=== PATIENT | female | born 1975 | race Caucasian/White ===

== ENCOUNTER 2016-06-04 13:40 | Emergency (ER) | payer MEDICAID ==
[~2016-06-04] VITALS: Ht 157.5 cm; Wt 59.0 kg
[2016-06-04 13:58] VITALS: Ht 157.5 cm; Wt 59.0 kg
[2016-06-04] MEDS ORDERED: IBUP-1542 PO (14:46)
[2016-06-04] MEDS ORDERED: ACET500C5 PO (14:46)
[2016-06-04] MEDS ORDERED: UDROBDM PO (14:47)
[2016-06-04] MEDS ORDERED: CETI10CA PO (14:47)
[2016-06-04] MEDS ORDERED: AZIT250T94 PO (14:47)
--- NOTE | 2016-06-04 16:21 | ERD ---
ER Documentation Chief Complaint Date/Time DATE: 06/04/16 TIME: 16:17 Chief Complaint cold symptoms, cough and fever at home HPI This is a 41-year-old female who presents emergency Department today complaining of cough and congestion and intermittent fevers for the past 5 days. She took Motrin last night. Denies any nausea or vomiting, headache, body aches. ROS All systems reviewed and are negative except as per history of present illness. Medications Home Meds Active Scripts Cetirizine Hcl* (Zyrtec*) 10 Mg Capsule, 10 MG PO DAILY, #10 TAB.CHEW Prov:KAYKAY VELAZQUEZ PA-C 06/04/16 Guaifenesin-Dextromethorphan* (Robitussin* DM) 100MG/10MG/5ML Syrup, 10 ML PO Q4H Y for COUGH for 5 Days, ML Prov:KAYKAY VELAZQUEZ PA-C 06/04/16 Azithromycin* (Zithromax*) 250 Mg Tablet, 250 MG PO .ZPACK DIRECTED, #6 TAB TAKE 500 MG (2 TABS) THE FIRST DAY THEN 250 MG (1 TAB) DAYS 2-5 Prov:KAYKAY VELAZQUEZ PA-C 06/04/16 Acetaminophen* (Tylophen*) 500 Mg Capsule, 1 CAP PO Q6H Y for PAIN AND OR ELEVATED TEMP, #30 CAP Prov:KAYKAY VELAZQUEZ PA-C 06/04/16 Ibuprofen* (Motrin*) 600 Mg Tab, 600 MG PO Q6, #30 TAB Prov:KAYKAY VELAZQUEZ PA-C 06/04/16 Allergies Allergies: Coded Allergies: No Known Allergy (Unverified , 08/06/13) PMhx/Soc History of Surgery: No Anesthesia Reaction: No Hx Neurological Disorder: No Hx Respiratory Disorders: No Hx Cardiac Disorders: No Hx Psychiatric Problems: No Hx Miscellaneous Medical Probl: Yes (OVARIAN CYST) Hx Alcohol Use: No Hx Substance Use: No Hx Tobacco Use: No Physical Exam Vitals Vital Signs Date Time Temp Pulse Resp B/P Pulse Ox O2 Delivery O2 Flow Rate FiO2 06/04/16 13:58 98.1 83 18 123/77 98 Physical Exam Const: pleasant, no acute distress Head: Atraumatic Eyes: Normal Conjunctiva ENT: Ears TMs normal. Nose no drainage. Throat no erythema no exudate Neck: Full range of motion..~ No meningismus. Resp: Clear to auscultation bilaterally. No absent breath sounds. No wheezing. Cardio: Regular rate and rhythm, no murmurs Abd: Soft, non tender, non distended. Normal bowel sounds Skin: No petechiae or rashes Neur: Awake and alert Psych: Normal Mood and Affect Procedures/MDM This 41-year-old female who presents to emergency department today for cough, congestion and intermittent fevers for the past 5 days. Patient was seen in [facility] and on physical exam patient is afebrile and otherwise well-appearing. Her oxygen saturation 98% respirations are 18. Not felt the patient required a chest x-ray at this time. Patient's symptoms at this time is consistent with a URI versus bronchitis versus pneumonia. I have low suspicion for strep pharyngitis, peritonsillar abscess, retropharyngeal abscess, otitis media, , sinusitis, abscess, meningitis, sepsis , or other acute infectious bacterial process. Patient will be given a prescription for Motrin, Tylenol, azithromycin to treat possible bronchitis versus pneumonia, Zyrtec and Robitussin At this time the patient is stable for discharge and outpatient management. They should follow up with their PCP in the next 1-2. They may return to the emergency department sooner if symptoms persist or worsen. Patient understood and agreed with the plan. Departure Diagnosis: Primary Impression: URI (upper respiratory infection) URI type: unspecified URI Qualified Code: J06.9 - Upper respiratory tract infection, unspecified type Condition: Fair Patient Instructions: Preventing Common Respiratory Infections [facility] un examen mdico de control que le indica que no est en kelly condicin que requiera tratamiento urgente en el Departamento de Emergencia. Un estudio ms profundo y el tratamiento de baumann condicin pueden esperar sin ningn riesgo hasta que usted sea atendida/o en el consultorio de baumann mdico o kelly cl jorge alberto. Es responsabilidad suya arreglar kelly collette para el seguimiento del óscar. MANEJO DE CONDICIONES NO URGENTES EN EL FUTURO 1) Si usted tiene un mdico de atencin primaria: Usted debera llamar a baumann mdico de atencin primaria antes de venir al departamento de emergencia. Despus de las horas de consultorio, baumann doctor o baumann asociado/a est disponible por telfono. El mdico o enfermero de gautam en el servicio telefnico puede asesorarle por yuriy medio para atender el problema, o óscar contrario se puede programar kelly collette. 2) Si usted no tiene un mdico de atencin primaria: Llame al mdico o clnica de referencia que aparece abajo silvia las horas de consultorio para hacer kelly collette para que le vean. CLINICAS: [facility] [phone] [address] [facility] [facility] [phone] [facility] [phone] [address] [facility]. [facility] [phone] [facility]. [facility] [phone] [facility] [phone] [address] Additional Instructions: Llame al doctor MAANA y aidan kelly COLLETTE PARA DENTRO DE 1-2 PHILIPPE.Dgale a la secretaria que nosotros le instruimos hacer esta collette.Avise o llame si baumann condicin se empeora antes de la collette. Regresa aqui si peor o no mejor. Take antibiotics as prescribed Take Tylenol or Motrin for fever Take Robitussin and Zyrtec for cough KAYKAY VELAZQUEZ PA-C Jun 04, 2016 16:21
== END 2016-06-04 14:51 | disposition home or self-care (01) ==
LOC: E/R 13:40
DX: J06.9 Acute upper respiratory infection, unspecified (principal)
CPT/HCPCS: 99283

== ENCOUNTER 2016-08-08 14:23 | Emergency (ER) | payer MEDICAID ==
[~2016-08-08] VITALS: Ht 154.9 cm; Wt 57.5 kg
[~2016-08-08 14:23] MED LIST: ACET500C5 PO; AZIT250T94 PO; CETI10CA PO; IBUP-1542 PO; UDROBDM PO
[2016-08-08 14:29] VITALS: Ht 154.9 cm; Wt 57.5 kg
[2016-08-08] MEDS ORDERED: IBUP-1542 PO (14:40)
[2016-08-08] MEDS ORDERED: CEPH-443 PO (14:40)
--- NOTE | 2016-08-08 14:59 | ERD ---
ER Documentation Chief Complaint Date/Time DATE: 08/08/16 TIME: 14:57 Chief Complaint L index finger pain and inflamm x 3 days HPI Patient is a 41-year-old female with no medical problems who presents with finger pain. She has pain and swelling of her left second finger. It has been there for 10 days but was worse over the past 3 days. She has no fevers. She had some pain in her left forearm as well. She tried Tylenol for the pain. She denies any recent trauma. She never had this before. She is right-handed. 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 She does not currently have a primary doctor. ROS All systems reviewed and are negative except as per history of present illness. Medications Home Meds Active Scripts Ibuprofen* (Motrin*) 600 Mg Tab, 600 MG PO Q6H Y for PAIN AND OR ELEVATED TEMP, #30 TAB Prov:ROBERTO CARLOS COREY MD 08/08/16 Cephalexin* (Keflex*) 500 Mg Capsule, 500 MG PO QID for 7 Days, CAP Prov:ROBERTO CARLOS COREY MD 08/08/16 Cetirizine Hcl* (Zyrtec*) 10 Mg Capsule, 10 MG PO DAILY, #10 TAB.CHEW Prov:KAYKAY VELAZQUEZ PA-C 06/04/16 Guaifenesin-Dextromethorphan* (Robitussin* DM) 100MG/10MG/5ML Syrup, 10 ML PO Q4H Y for COUGH for 5 Days, ML Prov:KAYKAY VELAZQUEZ PA-C 06/04/16 Azithromycin* (Zithromax*) 250 Mg Tablet, 250 MG PO .RUDYCK DIRECTED, #6 TAB TAKE 500 MG (2 TABS) THE FIRST DAY THEN 250 MG (1 TAB) DAYS 2-5 Prov:KAYKAY VELAZQUEZ PA-C 06/04/16 Acetaminophen* (Tylophen*) 500 Mg Capsule, 1 CAP PO Q6H Y for PAIN AND OR ELEVATED TEMP, #30 CAP Prov:KAYKAY VELAZQUEZ PA-C 06/04/16 Ibuprofen* (Motrin*) 600 Mg Tab, 600 MG PO Q6, #30 TAB Prov:KAYKAY VELAZQUEZ PA-C 06/04/16 Allergies Allergies: Coded Allergies: No Known Allergy (Unverified , 08/06/13) PMhx/Soc History of Surgery: No Anesthesia Reaction: No Hx Neurological Disorder: No Hx Respiratory Disorders: No Hx Cardiac Disorders: No Hx Psychiatric Problems: No Hx Miscellaneous Medical Probl: Yes (OVARIAN CYST) Hx Alcohol Use: No Hx Substance Use: No Hx Tobacco Use: No FmHx Family History: No diabetes Physical Exam Vitals Vital Signs Date Time Temp Pulse Resp B/P Pulse Ox O2 Delivery O2 Flow Rate FiO2 08/08/16 14:29 98.7 94 18 123/77 99 Physical Exam Const: No acute distress Head: Atraumatic Eyes: Normal Conjunctiva ENT: Normal External Ears, Nose and Mouth. Neck: Full range of motion..~ No meningismus. Resp: Clear to auscultation bilaterally Cardio: Regular rate and rhythm, no murmurs Abd: Soft, non tender, non distended. Normal bowel sounds Skin: No petechiae or rashes, good cap refill in the left second digit Back: No midline or flank tenderness Ext: Mild swelling to the left second finger without sign of abscess or sausage digit, no fusiform swelling Neur: Awake and alert, sensation intact over all 5 fingers of the left hand Psych: Normal Mood and Affect Procedures/MDM Patient is a 41-year-old female who presents with swelling and pain to the left second finger. There is no sign of abscess or flexor tenosynovitis at this time. She has full range of motion but there is pain. She has good capillary refill. Sensation is intact. There is no sign of vascular compromise. I will give a prescription for ibuprofen for pain and inflammation reduction. Is also possible that she has a mild cellulitis and therefore I will treat her with Keflex for a one-week course. I do not believe she requires further workup or admission the hospital at this time. She will be discharged but will need close follow-up with a primary doctor within 24-48 hours for recheck. I told her to return to the emergency department if her symptoms worsen. Departure Diagnosis: Primary Impression: Finger swelling Additional Impression: Pain of finger Laterality: left Qualified Code: M79.645 - Pain of finger of left hand Condition: Fair Patient Instructions: Finger Contusion, Sprain Finger Referrals: [facility] Usted se hinojosa hecho un examen mdico de control que le indica que no est en kelly condicin que requiera tratamiento urgente en el Departamento de Emergencia. Un estudio ms profundo y el tratamiento de baumann condicin pueden esperar sin ningn riesgo hasta que usted sea atendida/o en el consultorio de baumann mdico o kelly cl jorge alberto. Es responsabilidad suya arreglar kelly collette para el seguimiento del óscar. MANEJO DE CONDICIONES NO URGENTES EN EL FUTURO 1) Si usted tiene un mdico de atencin primaria: Usted debera llamar a baumann mdico de atencin primaria antes de venir al departamento de emergencia. Despus de las horas de consultorio, baumann doctor o baumann asociado/a est disponible por telfono. El mdico o enfermero de gautam en el servicio telefnico puede asesorarle por yuriy medio para atender el problema, o óscar contrario se puede programar kelly collette. 2) Si usted no tiene un mdico de atencin primaria: Llame al mdico o clnica de referencia que aparece abajo silvia las horas de consultorio para hacer kelly collette para que le vean. CLINICAS: [facility] [phone] [facility] [phone] [address] [facility]. [facility] [phone] [address] [facility]. [place] [phone] [facility]. [place] [phone] [facility]. [phone] [address] Additional Instructions: Llame al doctor MAANA y aidan kelly COLLETTE PARA DENTRO DE 1-2 PHILIPPE.Dgale a la secretaria que nosotros le instruimos hacer esta collette.Avise o llame si baumann condicin se empeora antes de la collette. Regresa aqui si peor o no mejor. ROBERTO CARLOS COREY MD Aug 08, 2016 14:58
== END 2016-08-08 14:41 | disposition home or self-care (01) ==
LOC: E/R 14:23
DX: M79.89 Other specified soft tissue disorders (principal)
CPT/HCPCS: 99283

== ENCOUNTER 2018-01-15 17:56 | Emergency (ER) | END 2018-01-15 18:43 | disposition home or self-care (01) ==